=== PATIENT | male | born 1945 | race Caucasian/White ===

== ENCOUNTER 2017-03-03 06:04 | Day surgery (SDC) | payer MEDICARE, OTHER ==
[~2017-03-03] VITALS: Ht 182.9 cm; Wt 96.2 kg
--- NOTE | ~2017-03-03 | HP ---
PATIENT: DAYNA SARAH MEDICAL RECORD: [id number] ACCOUNT: [id number] LOCATION:[facility] : 47 ADMISSION DATE: 03/03/17 HISTORY AND PHYSICAL EXAMINATION There was a history and physical on the chart. I saw the patient in my office. The history and physical examination is unchanged from my visit in the office. The risks, possible complications and alternatives to procedure were explained to the patient. She elects to proceed. 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
--- NOTE | ~2017-03-03 | OP ---
PATIENT NAME: DAYNA SARAH MEDICAL RECORD: [id number] :47 LOCATION:D.OPS ADMISSION DATE: SURGEON: RAEANN CARMONA MD DATE OF OPERATION: 03/03/2017 PREOPERATIVE DIAGNOSES: 1. Melena. 2. 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 POSTOPERATIVE DIAGNOSES: 1. Melena. 2. 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 3. Abnormal appearance to the ileocecal valve. 4. Left prostatic nodule. PROCEDURES: 1. Total colonoscopy to cecum. 2. Argon plasma coagulation therapy to cecal angioectasias, ascending colon angioectasias as well as angioectasias of the rectum. 3. Cold endoscopic biopsies of the superior lip of the ileocecal valve which had an abnormal appearance. SURGEON: Raeann Carmona MD. FIELD CARE MANAGER: None. BLOOD LOSS: Minimal. ANESTHESIA: General. COMPLICATIONS: None. When I identified that the patient had a left prostatic nodule, I contacted Dr. Elyse Dominguez at [facility]. I have recommended that the patient have a workup of this prostatic nodule. ENDOSCOPIC COURSE: The patient was conveyed to the operating room electively on 03/03/2017. General anesthesia was induced by the anesthesia staff. The patient was placed in the Smith position. A digital rectal examination was performed. There was a left prostatic nodule. A colonoscope was inserted through the anus. It was easily advanced to the cecum. The prep was adequate. I irrigated and aspirated extensively. The cecal as well as the ascending colon angioectasias were noted. These were ablated utilizing the argon plasma rural sociologist with the right colon setting in the forced mode. The ileocecal valve had an abnormal appearance to it. Cold endoscopic biopsies were obtained of the superior lip of the ileocecal valve. The biopsy sites were made hemostatic with the argon plasma rural sociologist. I then slowly withdrew the endoscope. The pullback was greater than an 18-minute pullback. I irrigated and aspirated extensively. I dragged the folds. Some rectal angioectasias were noted and there were ablated utilizing the argon plasma rural sociologist with the right colon setting in the forced mode. I then unretroflexed the scope and removed it under direct vision. I will plan to see the patient in my office in 2-3 weeks to review the results OPERATIVE REPORT [id number] ELIAS of the biopsies. At that time, I will query him as to whether he has had workup of the left prostatic nodule. TRANSINT:[id number] Voice Confirmation ID: [id number] DOCUMENT ID: [id number] RAEANN CARMONA MD CC: SUJEY BEAL MD [id number] DICTATION DATE: 03/03/17 1057 [employer] RECREATION WORKER: 03/03/171933 [facility] 03/03/17 [place] [address] [place] [id number]
[2017-03-03] MEDS ORDERED: OMEPRAZOLE40 MG PO (06:41)
[2017-03-03] MEDS ORDERED: TOPROL XL100 MG PO (06:42)
[2017-03-03] MEDS ORDERED: ZOCOR40 MG PO (06:42)
[2017-03-03] MEDS ORDERED: DIOVAN160 MG PO (06:43)
[2017-03-03] MEDS ORDERED: GLUCOVANCE 5/501 TAB PO (06:44)
[2017-03-03] MEDS ORDERED: TERAZOSIN HCL2 MG PO (06:45)
[2017-03-03] MEDS ORDERED: HYDROCODONE-APA1 TAB PO (06:46)
[2017-03-03] MEDS ORDERED: KLONOPIN0.5 MG PO (06:47)
[2017-03-03] MEDS ORDERED: RESTASIS EYE DR30 EA EACH EYE (06:48)
[2017-03-03] MEDS ORDERED: NITROSTAT0.4 MG SL (06:50)
[2017-03-03] MEDS ORDERED: VIAGRA100 MG PO (06:50)
[2017-03-03] MEDS ORDERED: KENALOG 0.1 % 115 GM TOPICAL (06:51)
[2017-03-03] MEDS ORDERED: BYDUREON P2 MG/0.65 SC (07:12)
[2017-03-03] MEDS ORDERED: OMEGA 3 FISH OI1 CAP PO (07:13)
[2017-03-03] MEDS ORDERED: ZINC PO (07:14)
[2017-03-03] MEDS ORDERED: ASPIRIN325 MG PO (07:15)
[2017-03-03] MEDS ORDERED: LEVEMIR FLEX PEN SC (07:17)
[2017-03-03] MEDS ORDERED: VITAMIN B COMPL1 TAB PO (07:18)
[2017-03-03] MEDS ORDERED: COENZYME Q10100 MG PO (07:19)
[2017-03-03] MEDS ORDERED: VITAMIN C1000 MG PO (07:19)
[2017-03-03 07:22] LABS: HEMATOCRIT 42.2 % (42.0-54.0); HEMOGLOBIN 14.1 g/dL (13.5-17.5); MCH 29.4 pg (26.0-34.0); MCHC 33.4 g/dL (31.0-37.0); MCV 87.9 fL (80.0-100.0); MEAN PLATELET VOLUME 10.4 fL (7.4-10.4); RBC 4.8 10x6/uL (4.20-6.10); RDW 15.7 % (11.5-14.5)
[2017-03-03 07:30] LABS: ANION GAP 15.3 mmol/L (8-16); CALCIUM 9.4 mg/dL (8.5-10.1); CARBON DIOXIDE 23.6 mmol/L (21.0-32.0); CREATININE - SERUM 1.2 mg/dL (0.6-1.3); POTASSIUM - SERUM 3.9 mmol/L (3.5-5.1)
[2017-03-03 07:45] VITALS: BP 129/75; Ht 182.9 cm; Wt 96.2 kg
--- NOTE | 2017-03-03 09:22 | NUR ---
SPOKE WITH @ 0983 REGARDING DELAY OF SURGICAL PROCEDURE.
--- NOTE | 2017-03-03 10:26 | NUR ---
PATIENT LEFT ON OR STRETCHER AND POSITIONED WITH SAFETY MEASURES TAKEN AND PRESSURE POINTS PADDED, MARIVEL.
== END 2017-03-03 13:10 | disposition home or self-care (01) ==
LOC: D.OPS 06:04 → D.PAN 09:15 → D.OPS 09:55 → D.PAN 09:55 → D.OPS 12:45
PROVIDERS: Anesthesiology
DX: K55.21 Angiodysplasia of colon with hemorrhage (principal); N40.2 Nodular prostate without lower urinary tract symptoms